=== PATIENT | male | born 1955 | race Caucasian/White ===

== ENCOUNTER → 2023-01-14 10:35 | Outpatient (BNVA) | payer MEDICARE, OTHER, SELFPAY | PROVIDERS: PCP Family Medicine; Visit Provider Surgery | DX: Z12.11 Encounter for screening for malignant neoplasm of colon (principal) | CPT/HCPCS: 99024; 99203 ==

== ENCOUNTER 2023-04-11 05:44 | Day surgery (SDC) | payer MEDICARE, OTHER, SELFPAY ==
[2023-04-11 06:07] VITALS: BP 129/77; PULSE 64; RESP 18; TEMP 36.2; O2SAT 96; BMI 32.5
[2023-04-11] MEDS: sodium chloride 0.9% 1,000 ML 30 ML IV (06:15)
--- NOTE | 2023-04-11 06:44 | W.PM.OPSFHP ---
Same Day Surgery H&P Indication for Procedure/HPI DATE OF PROCEDURE: April 11, 2023 CHIEF COMPLAINT/INDICATIONFOR SURGICAL PROCEDURE: encounter for screening colonoscopy PREOP DIAGNOSIS: encounter for screening colonoscopy PLANNED PROCEDURE: Operation Date: 04/11/23 07:00 Proposed Procedures p Colonoscopy 37449,Z12.11(Not Applicable) - Ramon Trejo MD Medications/Allergies* Home Medications Medication Instructions Recorded Confirmed Type ascorbate calcium (vitamin C) 500 500 mg PO DAILY 01/14/23 04/11/23 History mg tablet aspirin 81 mg chewable tablet 81 mg PO DAILY 01/14/23 04/11/23 History atorvastatin 80 mg tablet 80 tab PO DAILY 01/14/23 04/11/23 History carvedilol 6.25 mg tablet 6.25 mg PO BID 01/14/23 04/11/23 History gabapentin 300 mg capsule 300 mg PO BID 01/14/23 04/11/23 History levothyroxine 112 mcg tablet 112 mcg PO DAILY 01/14/23 04/11/23 History multivitamin 1 tab PO DAILY 01/14/23 04/11/23 History omega3 1,000 uh-zzh-mqf-other 1 cap PO DAILY 01/14/23 04/11/23 History gb1v-atbw oil 1,400 mg capsule,delay rel tamsulosin 0.4 mg capsule 0.4 mg PO DAILY 01/14/23 04/11/23 History meloxicam 15 mg tablet 15 mg PO DAILY 04/09/23 04/11/23 History Allergies/Adverse Reactions Allergy/AdvReac Type Severity Reaction Status Date / Time Penicillins Allergy rash Verified 04/11/23 06:03 Current Medications: Generic Name Dose Route Start Last Admin Trade Name Freq PRN Reason Stop Dose Admin Sodium Chloride 1,000 mls @ 30 mls/hr 04/11/23 06:00 04/11/23 06:15 Sodium Chloride 0.9% IV 30 mls/hr .Q24H HETAL Administration Pertinent History/Comorbid Conditions* Family History (Updated 01/14/23 @ 10:48 by MICKIE Haq) Diabetes Mother Dementia Mother Social History Smoking and tobacco/nicotine status: never used tobacco/nicotine Alcohol intake: never Pertinent Exam Findings alert, oriented x 3 and clear to auscultation bilaterally Recommendations Surgery/Procedure today Coding Level of Care Code Acute Code for Chg Fwd
--- NOTE | 2023-04-11 06:46 | ANES.PREANE2 ---
Pre-Anesthetic Assessment Height/Weight: Height 1.83 m Weight 108.862 kg Temp Pulse Resp BP Pulse Ox O2 Del Method 97.1 F L 64 18 129/77 96 Room Air 04/11/23 06:07 04/11/23 06:07 04/11/23 06:07 04/11/23 06:07 04/11/23 06:07 04/11/23 06:07 Preop Diagnosis: encounter for screening colonoscopy Operation Date: 04/11/23 07:00 Proposed Procedures p Colonoscopy 21001,Z12.11(Not Applicable) - Ramon Trejo MD Was Beta Peg taken within 24 hours: N/A Was Clonidine taken within 24 hours: N/A Last intake: Intake Last Liquid Date 04/10/23 Last Liquid Time 22:00 Last Solid Date 04/09/23 Last Solid Time 18:00 Social No alcohol and No tobacco Exam alert, oriented x 3, clear to auscultation bilaterally and regular rate & rhythm Airway Submandibular: within normal limits Cervical ROM: within normal limits Mallampati: Class II Dentition: false Comments: Comments: Upper plate lower partial History/ROS No significant history except as noted and No significant complaints Pulmonary None reported CV/HEM Coronary Artery Disease Stent None reported Hepatic None reported GI None reported Metabolic None reported Musc/skel Osteoarthritis/DJD Neuropsych None reported Anesthetic Plan ASA status: 3 Anesthesia: Anesthesia Evaluation and MAC Risk of > 500 ml blood loss (7ml/kg in children): No Medications/Allergies Home Medications Medication Instructions Recorded Confirmed Last Taken Type ascorbate calcium (vitamin C) 500 500 mg PO DAILY 01/14/23 04/11/23 04/10/23 History mg tablet aspirin 81 mg chewable tablet 81 mg PO DAILY 01/14/23 04/11/23 04/08/23 History atorvastatin 80 mg tablet 80 tab PO DAILY 01/14/23 04/11/23 04/10/23 History carvedilol 6.25 mg tablet 6.25 mg PO BID 01/14/23 04/11/23 04/10/23 History gabapentin 300 mg capsule 300 mg PO BID 01/14/23 04/11/23 04/10/23 History levothyroxine 112 mcg tablet 112 mcg PO DAILY 01/14/23 04/11/23 04/11/23 History multivitamin 1 tab PO DAILY 01/14/23 04/11/2323 History omega3 1,000 av-gcz-tsr-other 1 cap PO DAILY 01/14/23 04/11/23 04/10/23 History gx7r-pzsc oil 1,400 mg capsule,delay rel tamsulosin 0.4 mg capsule 0.4 mg PO DAILY 01/14/23 04/11/23 04/10/23 History meloxicam 15 mg tablet 15 mg PO DAILY 04/09/23 04/11/23 04/10/23 History Allergies Allergy/AdvReac Type Severity Reaction Status Date / Time Penicillins Allergy rash Verified 04/11/23 06:03 Current Medications Generic Name Dose Route Start Last Admin Trade Name Freq PRN Reason Stop Dose Admin Sodium Chloride 1,000 mls @ 30 mls/hr 04/11/23 06:00 04/11/23 06:15 Sodium Chloride 0.9% IV 30 mls/hr .Q24H HETAL Administration PFSH Anesthesia Family History (Updated 01/14/23 @ 10:48 by MICKIE Haq) Mother Diabetes Dementia Social History (Updated 01/14/23 @ 10:48 by MICKIE Haq) Smoking and tobacco/nicotine status: never used tobacco/nicotine Alcohol intake: never Data Anesthesia Cardiac Studies: No Data to Display
[2023-04-11 07:43] VITALS: BP 108/66; PULSE 65; RESP 20; TEMP 36.1; O2SAT 96
[2023-04-11 07:56] VITALS: BP 118/66; PULSE 62; RESP 18; O2SAT 96
--- NOTE | 2023-04-11 15:42 | ANE.PACU2 ---
Inpatient post-anesthesia follow up: Airway intact: Yes Vital signs: Temperature 97.0 F Pulse Rate 62 Respiratory Rate 18 Blood Pressure 118/66 Pulse Oximetry 96 Oxygen Delivery Me thod Room Air Oxygen Flow Rate 4 Fraction of Inspir ed Oxygen Hydration adequate: Yes Nausea and vomiting: Yes Pain level: 2 Mental status: Baseline
== END 2023-04-11 08:34 | disposition home or self-care (01) ==
PROVIDERS: PCP Family Medicine; Visit Provider Surgery
PROC: 0DJD8ZZ Inspection of Lower Intestinal Tract, Via Natural or Artificial Opening Endoscopic (ICD-10-PCS; CPT 45378; principal; 2023-04-11 07:00)
DX: Z12.11 Encounter for screening for malignant neoplasm of colon (principal); D12.4 Benign neoplasm of descending colon; D12.5 Benign neoplasm of sigmoid colon; D12.8 Benign neoplasm of rectum; Z79.82 Long term (current) use of aspirin; I25.10 Atherosclerotic heart disease of native coronary artery without angina pectoris; Z95.5 Presence of coronary angioplasty implant and graft
CPT/HCPCS: 45380; 45385; 88305; J2704; J7030

== ENCOUNTER → 2023-04-30 09:53 | Outpatient (BNVA) | payer MEDICARE, OTHER, SELFPAY | PROVIDERS: PCP Family Medicine; Visit Provider Surgery | DX: Z09 Encounter for follow-up examination after completed treatment for conditions other than malignant neoplasm (principal) | CPT/HCPCS: 99213 ==

== ENCOUNTER → 2023-06-13 14:12 | Outpatient (BNVA) | payer MEDICARE, OTHER, SELFPAY | PROVIDERS: PCP Family Medicine; Visit Provider Dermatology | DX: L57.0 Actinic keratosis (principal); L82.1 Other seborrheic keratosis; L81.8 Other specified disorders of pigmentation; L81.4 Other melanin hyperpigmentation | CPT/HCPCS: 17000; 99203 ==

== ENCOUNTER → 2023-12-16 09:20 | Outpatient (BNVA) | payer MEDICARE, OTHER, SELFPAY | PROVIDERS: PCP Family Medicine; Visit Provider Nurse Practitioner Family | DX: L57.0 Actinic keratosis (principal); L82.1 Other seborrheic keratosis; L91.8 Other hypertrophic disorders of the skin; L81.4 Other melanin hyperpigmentation | CPT/HCPCS: 17000; 17110; 99213 ==

== ENCOUNTER → 2024-04-16 09:11 | Outpatient (BNVA) | payer MEDICARE, OTHER, SELFPAY | PROVIDERS: PCP Family Medicine; Visit Provider Nurse Practitioner Family | DX: L82.1 Other seborrheic keratosis (principal); L91.8 Other hypertrophic disorders of the skin; L81.4 Other melanin hyperpigmentation; D18.01 Hemangioma of skin and subcutaneous tissue; L57.0 Actinic keratosis | CPT/HCPCS: 17004; 99213 ==

== ENCOUNTER → 2024-08-26 08:04 | Outpatient (BNVA) | payer MEDICARE, OTHER, SELFPAY | PROVIDERS: PCP Family Medicine; Visit Provider Nurse Practitioner Family | DX: L82.1 Other seborrheic keratosis (principal); D18.01 Hemangioma of skin and subcutaneous tissue; L81.4 Other melanin hyperpigmentation; L91.8 Other hypertrophic disorders of the skin; R20.8 Other disturbances of skin sensation; L53.8 Other specified erythematous conditions; L57.0 Actinic keratosis | CPT/HCPCS: 11200; 17000; 99213 ==

== ENCOUNTER → 2025-02-25 07:47 | Outpatient (BNVA) | payer MEDICARE, SELFPAY | PROVIDERS: PCP Family Medicine; Visit Provider Nurse Practitioner Family | DX: L57.8 Other skin changes due to chronic exposure to nonionizing radiation (principal); L81.4 Other melanin hyperpigmentation; L82.1 Other seborrheic keratosis; D18.01 Hemangioma of skin and subcutaneous tissue; L91.8 Other hypertrophic disorders of the skin; R58 Hemorrhage, not elsewhere classified; R20.8 Other disturbances of skin sensation; L29.89 Other pruritus; L53.8 Other specified erythematous conditions; H53.453 Other localized visual field defect, bilateral; L57.0 Actinic keratosis | CPT/HCPCS: 11200; 17000; 99213 ==